=== PATIENT | male | born 1950 | race Caucasian/White ===

== ENCOUNTER → 2020-10-15 14:33 | Outpatient (BNVA) | payer MEDICARE, SELFPAY | PROVIDERS: Family Provider Family Medicine; PCP Family Medicine; Referring Provider Family Medicine; Visit Provider Podiatrist Foot & Ankle Surgery | DX: M79.672 Pain in left foot (principal) | CPT/HCPCS: 73630 ==

== ENCOUNTER 2021-01-17 15:19 | Outpatient (CLI) | payer MEDICARE, SELFPAY ==
--- NOTE | 2021-01-17 16:00 | MR_ITS ---
WS: [id number] MRI LEFT ANKLE NONCONTRAST TECHNIQUE: Sagittal proton density, sagittal STIR, axial proton density, axial T1, axial T2 fat sat, coronal proton density, coronal proton density fat sat, coronal T2 fat sat. CLINICAL INFORMATION: mortons neuroma COMPARISON: None. FINDINGS: Normal visualized plantar subcutaneous soft tissues. Normal visualized plantar tendon sheat h MTP joints. No visualized Rose's neuroma in the area of concern along the third and fourth metata rsals/phalanges. Pes planus. Plantar calcaneal spurring. Normal talus and calcaneus. Normal talocalcaneal articulation . Normal metatarsals. Normal TMT joints. Distal Achilles is normal in appearance. Normal peroneus saul enedelia and brevis. Normal visualized extensor and flexor compartment tendons. MR/MR foot LT wo con* [id number] IMPRESSION: 1. No evidence of Rose's neuroma in the area of concern. 2. Normal plantar subcutaneous soft tissues. No subcutaneous mass or lesion. 3. Pes planus. Plantar calcaneal spurring. 4. Normal peroneus longus and brevis. 5. Distal Achilles is normal.
== END 2021-01-17 15:20 | disposition home or self-care (01) ==
LOC: RADSHAW 15:20
PROVIDERS: PCP Family Medicine; Visit Provider Podiatrist Foot & Ankle Surgery
DX: G57.20 Lesion of femoral nerve, unspecified lower limb (principal); M21.42 Flat foot [pes planus] (acquired), left foot; M77.32 Calcaneal spur, left foot
CPT/HCPCS: 73718

== ENCOUNTER 2021-02-09 16:59 | Emergency (ER) | payer MEDICARE, SELFPAY ==
[2021-02-09 17:06] VITALS: BP 128/71; PULSE 83; RESP 14; TEMP 37.1; O2SAT 95; BMI 24.1
--- NOTE | 2021-02-09 17:24 | XRR_ITS ---
PROCEDURE INFORMATION: Exam: XR Chest Exam date and time: 02/09/2021 5:37 PM Age: 70 years old Clinical indication: Other: Syncope TECHNIQUE: Imaging protocol: XR of the chest Views: 1 view. COMPARISON: CR Chest 1 [place] [id number] 11/18/2017 11:51 AM FINDINGS: Lungs: Well inflated and clear. Pleural spaces: Unremarkable. No pleural effusion. No pneumothorax. Heart/Mediastinum: The cardiac shadow is normal in size. Bones/joints: No acute abnormality. XR/XR chest 1V portable [id number] IMPRESSION: No acute findings.
[2021-02-09 17:36] LABS: Basophils % 0.5 %; Eosinophils # 0.1 10^3/uL (0.0-0.8); Eosinophils % 1.4 %; Hematocrit 43.8 % (42.0-52.0); Hemoglobin 14.8 g/dL (11.7-16.6); Lymphocytes # 1.8 10^3/uL (0.8-4.8); Lymphocytes % 29.5 %; Mean Corpuscular HGB Conc 33.8 g/dL (30.0-36.0); Mean Corpuscular Hemoglobin 33.3 pg (28.0-34.0); Mean Corpuscular Volume 98.6 fL (80-94); Mean Platelet Volume 10.1 fL (7.4-10.4); Monocytes # 0.5 10^3/uL (0.2-0.9); Monocytes % 7.5 %; Neutrophils # 3.79 10^3/uL (1.8-7.7); Neutrophils % 60.8 %; Nucleated Red Blood Cells % 0 %; Platelet Count 189 10^3/cmm (130-400); Red Blood Count 4.44 10^6/uL (4.1-5.3); Red Cell Distribution Width 13.2 % (12.1-15.1); White Blood Count 6.2 10^3/uL (4.0-10.0)
[2021-02-09 18:09] LABS: Alanine Aminotransferase 15 U/L (0-41); Albumin Level 3.9 g/dL (3.5-5.2); Alkaline Phosphatase 69 IU/L (40-130); Anion Gap 17.2 (5-19); Aspartate Amino Transferase 16 U/L (0-40); Blood Urea Nitrogen 17 mg/dL (8-23); Carbon Dioxide 23 mmol/L (22-29); Chloride 103 mmol/L (98-107); Creatine Phosphokinase 94 U/L (39-308); Globulin 2.2 g/dL (1.3-4.6); Glomerular Filtration Rate 73.9 mL/min (90-130); Glucose 131 mg/dL (65-115); Osmolality Calculated 291 mOsm/kg (285-295); Potassium 4.2 mmol/L (3.5-5.1); Sodium 139 mmol/L (136-145); Total Bilirubin 0.3 mg/dL (0.15-1.2); Total Protein 6.1 g/dL (6.6-8.7)
[2021-02-09 18:10] LABS: Troponin T (5th) Once 9 ng/L (0-15)
[2021-02-09] MEDS: sodium chloride 0.9% 1,000 ML 999 ML IV (18:13)
[2021-02-09 18:32] VITALS: BP 137/84; PULSE 71; RESP 18; O2SAT 98
[2021-02-09 19:10] LABS: Lactate (Lactic Acid level) 0.7 mmol/L (0.5-2.2)
--- NOTE | 2021-02-09 19:53 | ED_ITS ---
HPI - Syncope General: Chief Complaint: Syncope Stated Complaint: SYNCOPE Time Seen by Provider: 02/09/21 17:06 History of Present Illness: HPI narrative: The patient is a 70-year-old male with past medical history urinary issues who takes tamsulosin. He also is a smoker and started a nicotine patch today. He says he went from a seated to standing position and felt like the room was moving around him and became dizzy and fell to the floor. Denies any injuries he said he was able to gradually ease to the floor. He says he feels fine unless he goes to stand up. He says he has not been eating and drinking well today. MD complaint: loss of consciousness Associated symptoms: Deny abdominal pain, chest pain or headache(s) Review of Systems General: Reports: 10 or more systems reviewed and unremarkable except in HPI and below Const: Denies: fatigue Eyes: Denies: change in vision, blurry vision or eye redness ENMT: Denies: throat pain, swelling of lips/tongue, ear or mastoid pain or nasal congestion Card: Denies: chest pain, palpitations, irregular heart rhythm, edema, dyspnea on exertion or orthopnea Resp: Denies: dyspnea, productive cough or non-productive cough GI: Denies: abdominal pain, diarrhea or GI cramping : Denies: flank pain, urinary frequency or urinary urgency Musc: Denies: neck pain, back pain, extremity pain, joint pain, joint redness, limited range of motion or muscle weakness Skin/Breast: Denies: rash, pruritus, erythema, skin pain or skin tenderness Neuro: Reports: other (Syncope); Denies: headache(s), numbness in extremities, weakness in extremities, sensory changes, difficulty walking, dizziness, confusion or Slurred speech present Psych: Denies: anxiety or depression Endo: Denies: polyuria All/Imm: Denies: urticaria, throat swelling or tongue swelling PFSH ED PFSH: Medical History COPD suggested by initial evaluation Surgical History History of tonsillectomy and adenoidectomy Hx of exploratory laparotomy Hx of exploratory thoracotomy Hx of hernia repair Family History Mother Cancer Sister Cancer Social History Smoking and tobacco status: current some day smoker cigarettes Packs smoked per day: 2 Years cigarettes smoked: 58 Quit status (tobacco): not considering quitting Second hand smoke exposure: Yes Smoking risk assessment/counseling performed?: No Alcohol intake: never Physical Exam Const: COMMON NORMALS: no acute distress, average body habitus, patient oriented x3, no limitations, healthy appearing, alert and well nourished GENERAL APPEARANCE: cooperative, comfortable, well kempt and well developed ORIENTATION/CONSCIOUSNESS: Yes awake, Yes oriented to person, Yes oriented to place and Yes oriented to time HENMT: COMMON NORMALS: normocephalic, external ears normal and Normal external nose present HEAD & SCALP: normal to inspection and normocephalic NOSE: Normal external nose present EXTERNAL EAR: Yes external ears normal MOUTH: Normal oral and palatal mucosa present THROAT: posterior oropharynx normal Eye: COMMON NORMALS: Equal, round and reactive pupils present and EOMs intact bilaterally GENERAL EYE: appearance normal, both eyes and all related structures PUPIL: Yes Equal, round and reactive pupils present Neck/C-Spine: COMMON NORMALS: full ROM, no lymphadenopathy, no meningeal signs and no JVD GENERAL: Yes normal visual inspection Lymph: LYMPHATIC: no lymphadenopathy noted Chest: COMMONS NORMALS: normal inspection of the chest and normal palpation of entire chest wall Resp: COMMON NORMALS: normal respiratory effort, No retractions, No use of accessory muscles, clear to auscultation bilaterally and percussion normal EFFORT & INSPECTION: Yes able to speak in complete sentences AUSCULTATION: clear to auscultation bilaterally PERCUSSION: percussion normal Cardio: COMMON NORMALS: no JVD, regular rate, regular rhythm, S1 normal heart sound present, S2 normal heart sound present and Peripheral pulses 2+ throughout RATE: regular rate RHYTHM: regular rhythm HEART SOUNDS: S1 normal heart sound present and S2 normal heart sound present PERIPHERAL PULSES: Peripheral pulses 2+ throughout GI: COMMON NORMALS: Normal to inspection, nondistended, normoactive bowel sounds present, Soft to palpation, non-tender and no masses INSPECTION: Yes normal to inspection PALPATION: Yes Soft to palpation : COMMON NORMALS: Yes no CVA tenderness BLADDER/KIDNEY EXAM: Yes no CVA tenderness Back/Pelvis: COMMON NORMALS: no CVA tenderness, thoracic and lumbar spine normal to inspection, no thoracic nor lumbar tenderness and thoraco-lumbar ROM normal Extremity: COMMON NORMALS: normal to inspection, full ROM, capillary refill normal, no joint enlargement and no pedal edema GENERAL: Yes normal exam except as noted Neuro: COMMON NORMALS: patient oriented x3, CN's II-XII intact bilaterally, moves all extremities, no focal motor deficits, no sensory deficits noted and gait normal SENSORIUM/ORIENTATION: Yes alert, Yes oriented to person, Yes oriented to place and Yes oriented to time MENINGEAL SIGNS: Yes no meningeal signs Psych: COMMON NORMALS: mental status grossly normal, Normal thought process present, cooperative, normal affect and speech normal APPEARANCE: Yes well kempt ATTITUDE: Yes calm SPEECH: Yes normal speech THOUGHT PROCESS: Normal thought process present Skin: COMMON NORMALS: no rashes or lesions noted GENERAL SKIN EXAM: no rashes or lesions noted Course Vital Signs: Vital signs: Vital Signs Temperature 98.8 F 02/09/21 17:06 Pulse Rate 71 02/09/21 18:32 Respiratory Rate 18 02/09/21 18:32 Blood Pressure 137/84 02/09/21 18:32 Pulse Oximetry 98 02/09/21 18:32 MDM - Syncope MDM Narrative: Medical decision making narrative: The patient has an episode of syncope and he is on Flomax and just already taking a nicotine patch today. Likely also dehydrated. He was given a liter of fluids and his symptoms resolved. Telemetry normal. It also happened going from a seated to standing position. Further history reveals he has had this lightheadedness for some time when he goes to stand up possibly related to Flomax or other pathology however I recommended he discuss it with his primary care physician to possibly make a medication adjustment. Do not use the nicotine patch until primary approves it. ER with worsening symptoms. Primary in 3 to 5 days Lab Data: Labs: Lab Results 02/09/21 02/09/21 02/09/21 Range/Units 17:15 17:15 17:15 WBC 6.2 (4.0-10.0) 10^3/ uL RBC 4.44 (4.1-5.3) 10^6/u L Hgb 14.8 (11.7-16.6) g/dL Hct 43.8 (42.0-52.0) % MCV 98.6 H (80-94) fL MCH 33.3 (28.0-34.0) pg MCHC 33.8 (30.0-36.0) g/dL RDW 13.2 (12.1-15.1) % Plt Count 189 (130-400) 10^3/c mm MPV 10.1 (7.4-10.4) fL Neut % (Auto) 60.8 % Lymph % (Auto) 29.5 % [place] % (Auto) 7.5 % Eos % (Auto) 1.4 % Baso % (Auto) 0.5 % Neut # (Auto) 3.79 (1.8-7.7) 10^3/u L Lymph # (Auto) 1.8 (0.8-4.8) 10^3/u L [place] # (Auto) 0.5 (0.2-0.9) 10^3/u L Eos # (Auto) 0.1 (0.0-0.8) 10^3/u L Baso # (Auto) 0.0 (0.0-0.1) 10^3/u L Nucleated RBC % (a uto) 0 % Nucleated RBCs # 0.0 /100WBC Sodium 139 (136-145) mmol/L Potassium 4.2 (3.5-5.1) mmol/L Chloride 103 (98-107) mmol/L Carbon Dioxide 23 (22-29) mmol/L Anion Gap 17.2 (5-19) BUN 17 (8-23) mg/dL Creatinine 1.0 (0.7-1.2) mg/dL GFR Calculation 73.9 L (90-130) mL/min Glucose 131 H (65-115) mg/dL Calculated Osmolal ity 291 (285-295) mOsm/k g Lactate (0.5-2.2) mmol/L Calcium 9.0 (8.5-10.5) mg/dL Total Bilirubin 0.3 (0.15-1.2) mg/dL AST 16 (0-40) U/L ALT 15 (0-41) U/L Alkaline Phosphata se 69 (40-130) IU/L Creatine Kinase 94 (39-308) U/L Troponin T Gen 5 n g/L 9 (0-15) ng/L Total Protein 6.1 L (6.6-8.7) g/dL Albumin 3.9 (3.5-5.2) g/dL Globulin 2.2 (1.3-4.6) g/dL 02/09/21 Range/Units 18:35 WBC (4.0-10.0) 10^3/ uL RBC (4.1-5.3) 10^6/u L Hgb (11.7-16.6) g/dL Hct (42.0-52.0) % MCV (80-94) fL MCH (28.0-34.0) pg MCHC (30.0-36.0) g/dL RDW (12.1-15.1) % Plt Count (130-400) 10^3/c mm MPV (7.4-10.4) fL Neut % (Auto) % Lymph % (Auto) % [place] % (Auto) % Eos % (Auto) % Baso % (Auto) % Neut # (Auto) (1.8-7.7) 10^3/u L Lymph # (Auto) (0.8-4.8) 10^3/u L [place] # (Auto) (0.2-0.9) 10^3/u L Eos # (Auto) (0.0-0.8) 10^3/u L Baso # (Auto) (0.0-0.1) 10^3/u L Nucleated RBC % (a uto) % Nucleated RBCs # /100WBC Sodium (136-145) mmol/L Potassium (3.5-5.1) mmol/L Chloride (98-107) mmol/L Carbon Dioxide (22-29) mmol/L Anion Gap (5-19) BUN (8-23) mg/dL Creatinine (0.7-1.2) mg/dL GFR Calculation (90-130) mL/min Glucose (65-115) mg/dL Calculated Osmolal ity (285-295) mOsm/k g Lactate 0.7 (0.5-2.2) mmol/L Calcium (8.5-10.5) mg/dL Total Bilirubin (0.15-1.2) mg/dL AST (0-40) U/L ALT (0-41) U/L Alkaline Phosphata se (40-130) IU/L Creatine Kinase (39-308) U/L Troponin T Gen 5 n g/L (0-15) ng/L Total Protein (6.6-8.7) g/dL Albumin (3.5-5.2) g/dL Globulin (1.3-4.6) g/dL Discharge Plan Discharge Patient Disposition: Home Clinical Impression: Vasovagal syncope Condition: Stable Prescriptions: No Action oxycodone-acetaminophen 10-325 mg tablet 1 tab PO Q8H PRN (Reason: Pain) RF: 0 nitroglycerin 0.4 mg tablet, sublingual 0.4 mg sublingual Q5M PRN (Reason: Chest Pain) RF: 0 ofloxacin 0.3 % drops See Rx Instructions .ROUTE .COMPLEX RF: 0 tamsulosin 0.4 mg capsule 0.4 mg PO DAILY@0400 RF: 0 Discharge Orders: Discharge ED (Routine); Ordered 02/09/21 Ordered By: Bernard Dent Referrals: Daniel Trinidad [Primary Care Provider] - Discharge Diet: Advance as tolerated Discharge Activity: Resume usual activity Patient Instructions: Syncope (ED), Opioid Safety Activity Restrictions/Additional Instructions: You have had an episode of syncope possibly related to nicotine patch and Flomax. We have given you fluids and your symptoms have resolved. Please discuss with your doctor your medication Flomax, and smoking cessation before you try the nicotine patch again. Drink lots of fluids. Return to the ER with worsening symptoms. Coding Level of Care Code ED Field Liability Generalist for Roman Andrade
== END 2021-02-09 20:50 | disposition home or self-care (01) ==
PROVIDERS: Emergency Provider Family Medicine; PCP Family Medicine
DX: R55 Syncope and collapse (principal); J44.9 Chronic obstructive pulmonary disease, unspecified; F17.210 Nicotine dependence, cigarettes, uncomplicated
CPT/HCPCS: 36415; 71045; 80053; 82550; 83605; 84484; 85025; 96360; 99283; J7030

== ENCOUNTER 2025-08-13 13:14 | Outpatient (CLI) | payer MEDICARE, SELFPAY ==
--- NOTE | 2025-08-13 13:26 | MR_ITS ---
WS: [id number] MRI ORBITS WITH AND WITHOUT CONTRAST. COMPARISON: 08/24/2017 MRI brain. Multiplanar, multisequence imaging is performed with and without contrast. Sagittal and axial T1 fat sat sequences post-MultiHance 15 cc IV. Normal diffusion imaging. Moderate cerebral and cerebellar atrophy which has progressed since 2017. Mild small vessel ischemic changes in the subcortical white matter. No significant progression. No large territory infarct. Ventricles are normal size. No enhancing masses or vascular malformations. Arachnoid granulation in the LEFT transverse sinus. Normal appearance of the orbits and globes. Normal appearance of the optic nerves. There is no enhancement, enlargement or atrophy. Pituitary gland is normal. Posterior fossa is negative. Paranasal sinuses are clear. No mastoid air cell disease. Calvarium and scalp are negative. MR/MR orbit face neck wo/w* [id number] IMPRESSION: 1. Unremarkable MRI orbits. No vascular malformations or mass identified along the optic nerves. 2. Moderate cerebral and cerebellar atrophy which has progressed since the francis or study from 2017. 3. Mild small vessel changes. 4. No enhancing masses or vascular malformations.
[2025-08-13] MEDS: gadobenate dimeglumine 20 mL vial IV (14:08)
== END 2025-08-13 13:15 | disposition home or self-care (01) ==
LOC: RAD 13:18
PROVIDERS: PCP Family Medicine; Visit Provider Physician Assistant Medical
DX: G45.3 Amaurosis fugax (principal); G31.89 Other specified degenerative diseases of nervous system; G06.0 Intracranial abscess and granuloma
CPT/HCPCS: 70543

== ENCOUNTER → 2025-09-07 09:56 | Outpatient (BNVA) | payer MEDICARE, SELFPAY | PROVIDERS: PCP Family Medicine; Visit Provider Internal Medicine Cardiovascular Disease | DX: R07.89 Other chest pain (principal) | CPT/HCPCS: 93005 ==